=== PATIENT | male | born 1940 | race Caucasian/White ===

== ENCOUNTER → 2017-10-17 | Outpatient (CLI) | payer MEDICARE, BC ==
[2015-07-14 09:55] VITALS: BP 131/70
[~2017-10-17] MED LIST: ALBU6.7H IH; BUDE10.22 IH; CHOL2000 PO; COLE1TAB PO; CYAN10002 IJ; DOXY100T PO; FURO-68 PO; MAGN71.5 PO; METO25TA4 PO; POTA10CA PO; SIMV10TA PO; ZOLP10TA PO; glyburide; singulair
[2017-10-17 11:49] LABS: HEMATOCRIT 42.9 % (39.0-53.0); HEMOGLOBIN 14.6 g/dL (13.0-17.5)
[2017-10-17 12:05] LABS: ALBUMIN 3.6 g/dL (3.4-5.0); BACTERIA,URINE FEW /HPF (0-FEW); BILIRUBIN,URINE NEG (NEG); CALCIUM 8.7 mg/dL (8.5-10.1); CLARITY,URINE CLEAR; COLOR,URINE STRAW; CREATININE 1.7 mg/dL (0.7-1.3); GFR 39.3; GLUCOSE,URINE NEG (NEG); MAGNESIUM 1.9 mg/dL (1.8-2.4); NITRITE,URINE NEG (NEG); PHOSPHORUS 2.6 mg/dL (2.6-4.7); RBC,URINE OCC /HPF (0-2); SQUAMOUS EPITHELIAL CELL,UR FEW /LPF; UROBILINOGEN,URINE 0.2 mg/dL (0.2 mg/dL); WBC,URINE OCC /HPF (0-4)
[2017-10-17 21:07] LABS: MICRO CREAT RATIO 125.8 mg/g creat (0.0-30.0); MICROALB RD UR 49.3 ug/mL (Not Estab.); PROTEIN RANDOM URINE 13.5 mg/dL (Not Estab.)
== END | disposition home or self-care (01) ==
LOC: LAB 11:09
PROVIDERS: ATTEND Internal Medicine Nephrology
DX: I12.9 Hypertensive chronic kidney disease with stage 1 through stage 4 chronic kidney disease, or unspecified chronic kidney disease (principal); N18.3 Chronic kidney disease, stage 3 (moderate); E11.22 Type 2 diabetes mellitus with diabetic chronic kidney disease; E86.0 Dehydration; G47.62 Sleep related leg cramps; R80.1 Persistent proteinuria, unspecified; Z68.29 Body mass index [BMI] 29.0-29.9, adult
CPT/HCPCS: 36415; 80069; 81001; 82043; 82570; 83735; 84156; 85014; 85018

== ENCOUNTER → 2017-11-30 | Outpatient (CLI) | payer MEDICARE, BC ==
[2015-07-14 09:55] VITALS: BP 131/70
[2017-11-30 10:24] LABS: BASO % 0 % (0-3); EOS # 0.1 x10^3/uL (0.0-0.7); EOS % 2 % (0-3); HEMATOCRIT 43.8 % (39.0-53.0); HEMOGLOBIN 14.7 g/dL (13.0-17.5); LYMPH # 1.4 x10^3/uL (1.0-4.8); LYMPH % 24 % (24-48); MEAN CORPUSCULAR HEMOGLOBIN 34 pg (25-35); MEAN CORPUSCULAR HGB CONC 34 g/dL (31-37); MEAN CORPUSCULAR VOLUME 101 fL (79-100); MONO # 0.5 x10^3/uL (0.0-1.1); MONO % 9 % (0-9); NEUT # 3.6 x10^3uL (1.8-7.7); NEUT % 64 % (31-73); PLATELET COUNT 113 x10^3/uL (140-400); RED BLOOD COUNT 4.35 x10^6/uL (4.30-5.70); RED CELL DISTRIBUTION WIDTH 13.4 % (11.5-14.5); WHITE BLOOD COUNT 5.6 x10^3/uL (4.0-11.0)
[2017-11-30 10:34] LABS: BACTERIA,URINE 0 /HPF (0-FEW); BILIRUBIN,URINE NEG (NEG); CLARITY,URINE CLEAR; COLOR,URINE YELLOW; GLUCOSE,URINE NEG (NEG); HYALINE CASTS, URINE OCC /HPF; NITRITE,URINE NEG (NEG); RBC,URINE 0 /HPF (0-2); SQUAMOUS EPITHELIAL CELL,UR OCC /LPF; UROBILINOGEN,URINE 0.2 mg/dL (0.2 mg/dL); WBC,URINE 0 /HPF (0-4)
[2017-11-30 10:38] LABS: ALBUMIN 3.5 g/dL (3.4-5.0); ALBUMIN/GLOBULIN RATIO 0.9 (1.0-1.7); CALCIUM 8.8 mg/dL (8.5-10.1); CREATININE 1.5 mg/dL (0.7-1.3); GFR 45.3; POTASSIUM 4.1 mmol/L (3.5-5.1); TOTAL BILIRUBIN 0.5 mg/dL (0.2-1.0); TOTAL PROTEIN 7.5 g/dL (6.4-8.2)
[2017-11-30 14:36] LABS: FREE T4 0.99 ng/dL (0.76-1.46); THYROID STIM HORMONE (TSH) 5.919 uIU/mL (0.358-3.740)
[2017-12-01 02:08] LABS: HEMOGLOBIN A1C 6.5 % (4.8-5.6)
== END | disposition home or self-care (01) ==
LOC: LAB 08:33
PROVIDERS: ATTEND General Practice
DX: Z12.5 Encounter for screening for malignant neoplasm of prostate (principal); E11.9 Type 2 diabetes mellitus without complications
CPT/HCPCS: 36415; 80053; 80061; 81001; 83036; 83880; 84439; 84443; 85025; 86140; G0103

== ENCOUNTER → 2018-01-24 | Outpatient (CLI) | payer MEDICARE, BC ==
[2015-07-14 09:55] VITALS: BP 131/70
[2018-01-24 21:12] LABS: THYROXINE 8.6 ug/dL (4.5-12.0)
== END | disposition home or self-care (01) ==
LOC: LAB 08:15
PROVIDERS: ATTEND General Practice
DX: E03.9 Hypothyroidism, unspecified (principal); I13.0 Hypertensive heart and chronic kidney disease with heart failure and stage 1 through stage 4 chronic kidney disease, or unspecified chronic kidney disease; E11.22 Type 2 diabetes mellitus with diabetic chronic kidney disease; I50.9 Heart failure, unspecified; N18.3 Chronic kidney disease, stage 3 (moderate); E78.00 Pure hypercholesterolemia, unspecified
CPT/HCPCS: 36415; 84436; 84443; 84480

== ENCOUNTER → 2018-05-30 | Outpatient (CLI) | payer MEDICARE, BC ==
[2015-07-14 09:55] VITALS: BP 131/70
[2018-05-30 10:02] LABS: HEMATOCRIT 44.1 % (39.0-53.0); HEMOGLOBIN 15.1 g/dL (13.0-17.5)
[2018-05-30 10:13] LABS: ALBUMIN 3.5 g/dL (3.4-5.0); BACTERIA,URINE FEW /HPF (0-FEW); BILIRUBIN,URINE NEG (NEG); CLARITY,URINE CLEAR; COLOR,URINE YELLOW; CREATININE 1.8 mg/dL (0.7-1.3); GFR 36.7; GLUCOSE,URINE NEG (NEG); HYALINE CASTS, URINE MOD /HPF; MAGNESIUM 1.9 mg/dL (1.8-2.4); NITRITE,URINE NEG (NEG); PHOSPHORUS 3.1 mg/dL (2.6-4.7); POTASSIUM 4.6 mmol/L (3.5-5.1); SQUAMOUS EPITHELIAL CELL,UR FEW /LPF; UROBILINOGEN,URINE 0.2 mg/dL (0.2 mg/dL)
[2018-05-30 10:14] LABS: GRANULAR CASTS,URINE OCC /HPF
[2018-05-30 20:11] LABS: MICRO CREAT RATIO 91.2 mg/g creat (0.0-30.0)
[2018-05-30 22:06] LABS: CALCIUM PTH 9.8 mg/dL (8.6-10.2); CREATININE PTH 1.57 mg/dL (0.76-1.27); PTH INTACT 31 pg/mL (15-65)
== END | disposition home or self-care (01) ==
LOC: LAB 09:08
PROVIDERS: ATTEND Internal Medicine Nephrology
DX: E11.22 Type 2 diabetes mellitus with diabetic chronic kidney disease (principal); I13.0 Hypertensive heart and chronic kidney disease with heart failure and stage 1 through stage 4 chronic kidney disease, or unspecified chronic kidney disease; I50.30 Unspecified diastolic (congestive) heart failure; N18.3 Chronic kidney disease, stage 3 (moderate); R80.1 Persistent proteinuria, unspecified; E83.39 Other disorders of phosphorus metabolism; Z68.28 Body mass index [BMI] 28.0-28.9, adult
CPT/HCPCS: 80069; 81001; 82043; 82570; 83735; 83970; 85014; 85018

== ENCOUNTER 2018-06-22 18:48 | Emergency (ER) | payer MEDICARE, BC ==
[~2018-06-22] VITALS: Ht 322.6 cm; Wt 72.6 kg
--- NOTE | 2018-06-22 19:01 | ED.ADGEN ---
Past History Past Medical History: Cancer, COPD, Diabetes, Hypertension, Renal Disease Past Surgical History: Appendectomy, Cholecystectomy, Pacemaker Alcohol Use: None Drug Use: None Adult General Chief Complaint Chief Complaint ..." .. I started getting sick about 3 days ago.. it started with diarrhea.. but now I ve been vomiting... and can't keep anything down.. I figured .. I had better get checked out.. .I had mt colon out before.. so I always have some diarrhea.. but this vomiting is getting old.. I did have eye surgery the other day .. but nothing else has changed..." HPI HPI Patient is a 77 year old male who presents with above hx and complaints of diarrhea, nausea and vomiting. Patient has been passing increase gas. Pt. reports generalized abdomen discomfort. Pt. also complaining of generalized headache from the vomiting. Patient has significant medical history of diabetes , COPD, TIAs, hypertension, coronary artery disease, bilateral carotid endarterectomies and history of colectomy. Patient denies any travel or specific ill contacts. Patient denies any intake bad food. Patient reports he is taking Coumadin for TIAs and his heart. Patient normally follows with Dr. Liu at for cardiology. Patient follows Dr. Reyna for primary care. Patient recently off Coumadin for eye surgery but has restarted Coumadin at 4 mg a day. Review of Systems Review of Systems Constitutional: Subjective history of fever. Eyes: Denies change in visual acuity, redness, or eye pain [] HENT: Denies nasal congestion or sore throat [] Respiratory: Denies cough or shortness of breath [] Cardiovascular: No additional information not addressed in HPI [] GI: Complaints of generalized abdominal pain, nausea, vomiting, and diarrhea [] : Denies dysuria or hematuria [] Musculoskeletal: Denies back pain or joint pain [] Complaints of generalized weakness. Integument: Denies rash or skin lesions [] Neurologic: Complaints headache, denies focal weakness or sensory changes [] Endocrine: Denies polyuria or polydipsia [] All other systems were reviewed and found to be within normal limits, except as documented in this note. Family History Family History Noncontributory Current Medications Current Medications Current Medications Medications (Trade) Dose Ordered Sig/Arianne Start Time Stop Time Status Last Admin Dose Admin Info (Do NOT chart on this entry -- for MONITORING) 1 each PRN DAILY PRN 06/22/18 23:00 06/23/18 04:29 DC Iohexol (Omnipaque 240 Mg/ml) 50 ml 1X ONCE 06/22/18 23:00 06/22/18 23:01 DC 06/22/18 23:50 50 ML Lactated Ringer's 1,000 ml @ 500 mls/hr 1X ONCE 06/22/18 23:00 06/23/18 00:59 DC 06/23/18 00:23 500 MLS/HR Lorazepam (Ativan) 2 mg 1X ONCE 06/23/18 01:45 06/23/18 03:19 DC Metronidazole 100 ml @ 100 mls/hr 1X ONCE 06/22/18 23:00 06/22/18 23:59 DC 06/22/18 23:03 100 MLS/HR Morphine Sulfate (Morphine 2mg Syringe) 2 mg 1X ONCE 06/23/18 02:00 06/23/18 03:19 DC 06/23/18 01:51 2 MG Ondansetron HCl (Zofran) 4 mg STK-MED ONCE 06/23/18 02:13 06/23/18 02:14 DC Sodium Chloride 250 ml @ As Directed STK-MED ONCE 06/22/18 22:54 06/22/18 22:55 DC Vancomycin HCl (Vancomycin) 1 gm STK-MED ONCE 06/22/18 22:54 06/22/18 22:55 DC Vancomycin HCl 1 gm/Sodium Chloride 250 ml @ 250 mls/hr 1X ONCE 06/22/18 23:00 06/22/18 23:59 DC 06/23/18 00:24 250 MLS/HR Allergies Allergies Allergies Coded Allergies Type Severity Reaction Last Updated Verified No Known Drug Allergies 07/14/15 No Physical Exam Physical Exam Constitutional: Moderately acute distress, non-toxic appearance. [] HENT: Normocephalic, atraumatic, bilateral external ears normal, oropharynx dry , no oral exudates, nose normal. [] Eyes: PERRLA, EOMI, conjunctiva normal, no discharge. [] Neck: Normal range of motion, no tenderness, supple, no stridor. Old surgery scars. Cardiovascular:Heart rate regular rhythm, no murmur, PMI to the left Lungs & Thorax: Bilateral breath sounds equal at apex with scattered wheezes on auscultation . Pacer on lt. Abdomen: Bowel sounds decreased, soft, generalized tenderness, distended, tympanic, no masses, no pulsatile masses. Old surgery scars. Skin: Warm, dry, no erythema, no rash. Poor turgor. Scattered petechiae and areas of ecchymosis Back: No tenderness, no CVA tenderness. [] Extremities: No tenderness, no cyanosis, no clubbing, ROM intact, no edema. [] Arthritic changes. Neurologic: Alert and oriented X 3, moves all extremities on request. No acute sensory changes per patient,no focal deficits noted. [] Psychologic: Affect anxious,, judgement normal, mood normal. [] Current Patient Data Vital Signs Vital Signs Date Time Temp Pulse Resp B/P (MAP) Pulse Ox O2 Delivery O2 Flow Rate FiO2 06/23/18 01:53 73 18 115/58 (77) 92 Room Air 06/22/18 20:08 97.8 Lab Results Laboratory Tests Test 06/22/18 19:19 06/22/18 20:46 06/22/18 22:09 White Blood Count 5.6 x10^3/uL (4.0-11.0) Red Blood Count 4.81 x10^6/uL (4.30-5.70) Hemoglobin 16.3 g/dL (13.0-17.5) Hematocrit 48.2 % (39.0-53.0) Mean Corpuscular Volume 100 fL (79-100) Mean Corpuscular Hemoglobin 34 pg (25-35) Mean Corpuscular Hemoglobin Concent 34 g/dL (31-37) Red Cell Distribution Width 14.4 % (11.5-14.5) Platelet Count 168 x10^3/uL (140-400) Neutrophils (%) (Auto) 61 % (31-73) Lymphocytes (%) (Auto) 27 % (24-48) Monocytes (%) (Auto) 12 % (0-9) H Eosinophils (%) (Auto) 0 % (0-3) Basophils (%) (Auto) 0 % (0-3) Neutrophils # (Auto) 3.4 x10^3uL (1.8-7.7) Lymphocytes # (Auto) 1.5 x10^3/uL (1.0-4.8) Monocytes # (Auto) 0.7 x10^3/uL (0.0-1.1) Eosinophils # (Auto) 0.0 x10^3/uL (0.0-0.7) Basophils # (Auto) 0.0 x10^3/uL (0.0-0.2) Prothrombin Time 54.4 SEC (9.4-11.4) H Prothrombin Time INR 5.9 (0.9-1.1) *H PTT 74 SEC (23-33) H D-Dimer (Jaqueline) 1.34 mg/L (0.00-0.50) H Sodium Level 129 mmol/L (136-145) L Potassium Level 4.5 mmol/L (3.5-5.1) Chloride Level 94 mmol/L (98-107) L Carbon Dioxide Level 20 mmol/L (21-32) L Anion Gap 15 (6-14) H Blood Urea Nitrogen 71 mg/dL (8-26) H Creatinine 3.4 mg/dL (0.7-1.3) H Estimated GFR (Cockcroft-Gault) 17.6 Glucose Level 259 mg/dL (70-99) H Calcium Level 9.1 mg/dL (8.5-10.1) Magnesium Level 3.2 mg/dL (1.8-2.4) H Total Bilirubin 0.8 mg/dL (0.2-1.0) Direct Bilirubin 0.2 mg/dL (0.0-0.2) Aspartate Amino Transferase (AST) 35 U/L (15-37) Alanine Aminotransferase (ALT) 33 U/L (16-63) Alkaline Phosphatase 78 U/L (46-116) Creatine Kinase 61 U/L (39-308) Troponin I Quantitative 0.019 ng/mL (0-0.055) AO-Lsl-J-Type Natriuretic Peptide 356 pg/mL (0-449) Total Protein 8.5 g/dL (6.4-8.2) H Albumin 3.5 g/dL (3.4-5.0) Lipase 149 U/L (73-393) Urine Collection Type Void Urine Color Stefanie Urine Clarity Hazy Urine pH 5.0 Urine Specific [place] >=1.030 Urine Protein 30 mg/dl (NEG-TRACE) Urine Glucose (UA) Neg mg/dL (NEG) Urine Ketones (Stick) Trace mg/dL (NEG) Urine Blood Neg (NEG) Urine Nitrite Neg (NEG) Urine Bilirubin Neg (NEG) Urine Urobilinogen Dipstick 0.2 mg/dL (0.2 mg/dL) Urine Leukocyte Esterase Neg (NEG) Urine RBC Occ /HPF (0-2) Urine WBC Occ /HPF (0-4) Urine Squamous Epithelial Cells Few /LPF Urine Amorphous Sediment Present /HPF Urine Bacteria Few /HPF (0-FEW) Urine Hyaline Casts Mod /HPF Urine Granular Casts Mod /HPF Urine Opiates Screen Neg (NEG) Urine Methadone Screen Neg (NEG) Urine Barbiturates Neg (NEG) Urine Phencyclidine Screen Neg (NEG) Urine Amphetamine/Methamphetamine Neg (NEG) Urine Benzodiazepines Screen Neg (NEG) Urine Cocaine Screen Neg (NEG) Urine Cannabinoids Screen Neg (NEG) Urine Ethyl Alcohol Neg (NEG) Influenza Type A (Rapid) Negative (NEGATIVE) Influenza Type B (Rapid) Negative (NEGATIVE) EKG EKG My interpretation EKG shows a sinus rhythm at 70 bpm. Does have some nonspecific contour abnormalities. But no findings acute STEMI of contralateral changes[] Radiology/Procedures Radiology/Procedures My interpretation of chest x-ray shows cardiomegaly. Some increase cephalization and blunting a left closed phrenic angle. Does have a pacer. No free air in the diaphragm but obvious diffuse bowel gas.[] CT of abdomen shows distal small bowel obstruction, with pneumatosis and pneumobilia. Course & Med Decision Making Course & Med Decision Making Pertinent Labs and Imaging studies reviewed. (See chart for details). Discussed presentation, testing and treatment plan with Dr. Garcia and Dr. Munguia. -Transfer to [facility]. Critical care 90 min. Pt. to also have cardiology and nephrology consults. [] Final Impression Final Impression 1. Abdomen Pain 2. Nausea , Vomiting, Diarrhea 3. Hx. Fever and Chills[] 4. Weakness 5. Critical INR 5.9 6. Dehydration 7. Distal Small Bowel Obstruction- with Pneumatosis and Pneumobilia 8. Renal Failure Acute on Chronic Bun 71/3.4 creat. 9. Hyponatremia 129 10Hypermagnesium 3.2 11.DM- 252 Dragon Disclaimer Dragon Disclaimer This electronic medical record was generated, in whole or in part, using a voice recognition dictation system. HOMER MCGINNIS MD Jun 22, 2018 19:01
[2018-06-22] MEDS ORDERED: IV RINGERS SOLUTION,LACTATED 1,000 ML IV SCH (19:02)
[2018-06-22] MEDS ORDERED: ONDANSETRON PF 4 MG/2 ML VIAL. IV ONE (19:30)
[2018-06-22 19:40] LABS: BASO % 0 % (0-3); EOS % 0 % (0-3); HEMATOCRIT 48.2 % (39.0-53.0); HEMOGLOBIN 16.3 g/dL (13.0-17.5); LYMPH # 1.5 x10^3/uL (1.0-4.8); LYMPH % 27 % (24-48); MEAN CORPUSCULAR HEMOGLOBIN 34 pg (25-35); MEAN CORPUSCULAR HGB CONC 34 g/dL (31-37); MEAN CORPUSCULAR VOLUME 100 fL (79-100); MONO # 0.7 x10^3/uL (0.0-1.1); MONO % 12 % (0-9); NEUT # 3.4 x10^3uL (1.8-7.7); NEUT % 61 % (31-73); PLATELET COUNT 168 x10^3/uL (140-400); RED BLOOD COUNT 4.81 x10^6/uL (4.30-5.70); RED CELL DISTRIBUTION WIDTH 14.4 % (11.5-14.5); WHITE BLOOD COUNT 5.6 x10^3/uL (4.0-11.0)
[2018-06-22 19:59] LABS: ALBUMIN 3.5 g/dL (3.4-5.0); CALCIUM 9.1 mg/dL (8.5-10.1); CREATININE 3.4 mg/dL (0.7-1.3); DIRECT BILIRUBIN 0.2 mg/dL (0.0-0.2); GFR 17.6; MAGNESIUM 3.2 mg/dL (1.8-2.4); POTASSIUM 4.5 mmol/L (3.5-5.1); TOTAL BILIRUBIN 0.8 mg/dL (0.2-1.0); TOTAL PROTEIN 8.5 g/dL (6.4-8.2)
--- NOTE | 2018-06-22 20:17 | RAD ---
Abdominal series dated 06/22/2018. Comparison made to 05/31/2015. Clinical indication: Nausea and vomiting for 3 days. FINDINGS: Single upright view of the chest shows stable heart and mediastinal contours. Dual lead left subclavian pacer in place, unchanged. There is some patchy increased density at the left lung base with blunting of the left costophrenic sulcus, new from prior study. Right lung remains clear. There are prominent perihilar linear markings, unchanged. No pneumothorax. Flat and upright views of the abdomen show mildly dilated loops of small bowel with a few scattered air-fluid levels on the upright view. No pneumoperitoneum. There is scattered colonic gas. IMPRESSION: 1. Mildly dilated loops of small bowel with a few scattered air-fluid levels, nonspecific. This could be related to ileus or enteritis. Small bowel obstruction not excluded. 2. Patchy left basilar airspace disease, atelectasis versus pneumonia. There is a suspected small left pleural effusion. Electronically signed by: Jet Barrera MD (06/22/2018 8:14 PM) [facility]
[2018-06-22 21:12] LABS: BARBITURATES NEG (NEG); BENZODIAZEPINES NEG (NEG); CANNABINOIDS NEG (NEG); COCAINE NEG (NEG); METHADONE NEG (NEG); OPIATES NEG (NEG); PHENCYCLIDINE NEG (NEG)
[2018-06-22 21:14] LABS: AMPHETAMINE/METHAMPHETAMINE NEG (NEG)
[2018-06-22 21:40] LABS: AMORPHOUS SEDIMENT,UR PRESENT /HPF; BACTERIA,URINE FEW /HPF (0-FEW); BILIRUBIN,URINE NEG (NEG); CLARITY,URINE HAZY; COLOR,URINE AMBER; GLUCOSE,URINE NEG (NEG); GRANULAR CASTS,URINE MOD /HPF; HYALINE CASTS, URINE MOD /HPF; NITRITE,URINE NEG (NEG); RBC,URINE OCC /HPF (0-2); SQUAMOUS EPITHELIAL CELL,UR FEW /LPF; UROBILINOGEN,URINE 0.2 mg/dL (0.2 mg/dL); WBC,URINE OCC /HPF (0-4)
--- NOTE | 2018-06-22 22:11 | RAD ---
CT HEAD WO CONTRAST dated 06/22/2018 9:57 PM Indication:..BILATERAL EYES LIP ALSO PRE-ORBITAL BRUSING AND SWELLING SX S/P NAUSEA AND VOMITING X3 DAYS ALSO VOMITING ELEVATED D DIMER. Comparison: No comparison is available. Technique: Contiguous axial imaging of the head was performed from skull base to vertex. One or more of the following individualized dose reduction techniques were utilized for this examination: 1. Automated exposure control 2. Adjustment of the mA and/or kV according to patient size 3. Use of iterative reconstruction technique Findings: Ventricles and sulci are mildly prominent for age. No midline shift or mass effect. Mild patchy low density in the deep/subcortical periventricular white matter. No hemorrhage or extra axial collection. Posterior fossa and brainstem unremarkable. Visualized paranasal sinuses and mastoid air cells are clear. No apparent calvarial abnormality. IMPRESSION: 1. No evidence of acute intracranial hemorrhage or mass. 2. Mild chronic small vessel ischemic changes and atrophy. Electronically signed by: Jet Barrera MD (06/22/2018 10:08 PM) [facility]
[2018-06-22 22:41] LABS: INFLUENZA A PATIENT NEGATIVE (NEGATIVE); INFLUENZA B PATIENT NEGATIVE (NEGATIVE)
--- NOTE | 2018-06-22 22:41 | EKG ---
[address] [address] Test Date: 2018-06-22 Test Time: 19:35:16 Pat Name: CHRISTOPHER BROWN Department: Room: Gender: M [employer]: : 1940 Requested By: HOMER MCGINNIS Order Number: [id number] Reading MD: Dimas Hernandez Measurements Intervals [place] Rate: 70 P: 16 VA: 178 QRS: 30 QRSD: 86 T: 43 QT: 396 QTc: 430 Interpretive Statements SINUS RHYTHM QRS(T) CONTOUR ABNORMALITY CONSISTENT WITH INFERIOR INFARCT PROBABLY OLD T ABNORMALITY IN ANTERIOR LEADS ABNORMAL ECG Electronically Signed On 06-23-2018 14:31:34 [employer] by Dimas Hernandez
[2018-06-22] MEDS ORDERED: VANCOMYCIN 1 GM VIAL. ONE (22:54)
[2018-06-22] MEDS ORDERED: IV NORMAL SALINE 250ML 250 ML ONE (22:54)
[2018-06-22] MEDS ORDERED: CONTRAST GIVEN MC PRN (23:00)
[2018-06-22] MEDS ORDERED: VANCOMYCIN 1 GM in IV NORMAL SALINE 250ML 250 ML IV ONE (23:00)
[2018-06-22] MEDS ORDERED: IV RINGERS SOLUTION,LACTATED 1,000 ML IV ONE (23:00)
[2018-06-22] MEDS ORDERED: IOHEXOL 240 MG/ML 50ML VIAL. PO ONE (23:00)
--- NOTE | 2018-06-23 00:37 | RAD ---
INDICATION: pain, nausea and vomiting COMPARISON: June 22, 2018 TECHNIQUE: Axial CT images obtained through the abdomen and pelvis without intravenous contrast. One or more of the following individualized dose reduction techniques were utilized for this examination: 1. Automated exposure control; 2. Adjustment of the mA and/or kV according to patient size; 3. Use of iterative reconstruction technique. FINDINGS: Multiple blebs at lung bases with disorganized pulmonary markings. Pacemaker lead partially seen. At least moderate calcific atherosclerosis. Left fat-containing inguinal hernia. There are some mild linear flecks of air within the liver. Postcholecystectomy changes. No peripancreatic fluid collection. Spleen is not enlarged. Suspected exophytic cystic lesion lower pole left kidney. Atrophic appearance of kidneys. No left-sided hydronephrosis. Urinary bladder is partially distended. No right-sided hydronephrosis. No right-sided hydronephrosis. Colonic diverticulosis. Dilation is identified throughout the small bowel loops with some of the bowel loops measuring up to about 4 cm in diameter. Within the right side of abdomen there are some of these bowel loops that have air along the wall of small bowel. Degenerative changes throughout the spine with multilevel central canal and neural foraminal stenosis. IMPRESSION: 1. Air-filled dilation of small bowel loops concerning for small bowel obstruction. 2. Within the right side of the abdomen there is some air seen along the wall of the small bowel which is concerning for pneumatosis. In addition there is a couple of flecks of air within the liver. Given the patient's suspected bowel obstruction and pneumatosis this is concerning for portal venous air which is the most likely cause with pneumobilia considered less likely. 3. There is some nodularity of the hepatic contour. Cannot exclude causes such as chronic hepatic disease. 4. Calcific atherosclerosis. 5. Report called to the ER at 12:30 AM on date of exam. Electronically signed by: Cam Davis MD (06/23/2018 12:33 AM) [id number]
[2018-06-23] MEDS ORDERED: LORazepam 1 MG TABLET PO ONE (01:45)
[2018-06-23] MEDS ORDERED: MORPHINE SULFATE 2 MG/ML DISP.SYRIN. ONE (01:47)
[2018-06-23 01:53] VITALS: BP 115/58
[2018-06-23] MEDS ORDERED: MORPHINE SULFATE 2 MG/ML DISP.SYRIN. IV ONE (02:00)
[2018-06-23] MEDS ORDERED: ONDANSETRON PF 4 MG/2 ML VIAL. IV ONE ×2 (02:02→09:00)
[2018-06-23] MEDS ORDERED: ONDANSETRON PF 4 MG/2 ML VIAL. ONE (02:13)
== END 2018-06-23 02:18 | disposition short-term general hospital (02) ==
LOC: ER 18:48
DX: K56.699 Other intestinal obstruction unspecified as to partial versus complete obstruction (principal); R11.2 Nausea with vomiting, unspecified; R19.7 Diarrhea, unspecified; R53.1 Weakness; K63.89 Other specified diseases of intestine; N17.9 Acute kidney failure, unspecified; E87.1 Hypo-osmolality and hyponatremia; E83.41 Hypermagnesemia; E11.22 Type 2 diabetes mellitus with diabetic chronic kidney disease; I12.9 Hypertensive chronic kidney disease with stage 1 through stage 4 chronic kidney disease, or unspecified chronic kidney disease; N18.9 Chronic kidney disease, unspecified; J44.9 Chronic obstructive pulmonary disease, unspecified; Z90.49 Acquired absence of other specified parts of digestive tract; Z90.89 Acquired absence of other organs; Z95.0 Presence of cardiac pacemaker
CPT/HCPCS: 36415; 70450; 74022; 74176; 80048; 80076; 80307; 81001; 82550; 83690; 83735; 83880; 84443; 84484; 85025; 85379; 85610; 85730; 87040; 87804; 93005; 96361; 96365; 96367; 96375; 96376; 99285; J2270; J2405; J3370; J3490; J7050; J7120; Q9966

== ENCOUNTER → 2019-01-03 | Outpatient (CLI) | payer MEDICARE, BC ==
[~2019-01-03] MED LIST changes: +ALBU2.5V8 IH; -ALBU6.7H IH
--- NOTE | 2019-01-03 13:31 | RAD ---
PA and lateral chest x-ray compared to similar study dated 05/31/2015 for cough with shortness of breath. FINDINGS: There are coarse fibrotic interstitial changes bilaterally. Heart size mildly enlarged. Dual-lead pacemaker is present. Diaphragms are flattened. No definite focal pneumonic infiltrates, though subtle disease could be masked by fibrotic interstitial changes. IMPRESSION: 1. Changes of COPD, with diffuse coarse fibrotic interstitial lung disease. No definite acute infiltrates. Electronically signed by: Mik Wagner MD (01/03/2019 1:28 PM) [id number]
== END | disposition home or self-care (01) ==
LOC: RAD 13:09
PROVIDERS: ATTEND General Practice
DX: J44.9 Chronic obstructive pulmonary disease, unspecified (principal); J84.10 Pulmonary fibrosis, unspecified; Z95.0 Presence of cardiac pacemaker
CPT/HCPCS: 71046

== ENCOUNTER → 2019-07-18 | Outpatient (CLI) | payer MEDICARE, BC ==
[2019-07-18 09:34] LABS: BASO % 1 % (0-3); EOS # 0.2 x10^3/uL (0.0-0.7); EOS % 3 % (0-3); HEMATOCRIT 41.1 % (39.0-53.0); HEMOGLOBIN 13.8 g/dL (13.0-17.5); LYMPH # 1.5 x10^3/uL (1.0-4.8); LYMPH % 19 % (24-48); MEAN CORPUSCULAR HEMOGLOBIN 35 pg (25-35); MEAN CORPUSCULAR HGB CONC 34 g/dL (31-37); MEAN CORPUSCULAR VOLUME 103 fL (79-100); MONO # 0.8 x10^3/uL (0.0-1.1); MONO % 10 % (0-9); NEUT # 5.2 x10^3uL (1.8-7.7); NEUT % 67 % (31-73); PLATELET COUNT 160 x10^3/uL (140-400); RED BLOOD COUNT 3.98 x10^6/uL (4.30-5.70); RED CELL DISTRIBUTION WIDTH 14.4 % (11.5-14.5); WHITE BLOOD COUNT 7.7 x10^3/uL (4.0-11.0)
[2019-07-18 09:43] LABS: ALBUMIN 3.5 g/dL (3.4-5.0); ALBUMIN/GLOBULIN RATIO 0.8 (1.0-1.7); CALCIUM 8.8 mg/dL (8.5-10.1); CREATININE 2.2 mg/dL (0.7-1.3); POTASSIUM 4.2 mmol/L (3.5-5.1); TOTAL BILIRUBIN 0.6 mg/dL (0.2-1.0)
== END | disposition home or self-care (01) ==
LOC: LAB 08:19
PROVIDERS: ATTEND Internal Medicine Cardiovascular Disease
DX: I25.10 Atherosclerotic heart disease of native coronary artery without angina pectoris (principal); E78.5 Hyperlipidemia, unspecified; I48.0 Paroxysmal atrial fibrillation
CPT/HCPCS: 36415; 80053; 80061; 85025

== ENCOUNTER → 2019-09-24 | Outpatient (CLI) | payer MEDICARE, BC ==
[2019-09-24 11:59] LABS: HEMATOCRIT 42.6 % (39.0-53.0)
[2019-09-24 12:10] LABS: ALBUMIN 3.6 g/dL (3.4-5.0); CALCIUM 8.8 mg/dL (8.5-10.1); CREATININE 2.6 mg/dL (0.7-1.3); GFR 23.9; PHOSPHORUS 3.2 mg/dL (2.6-4.7); POTASSIUM 4.7 mmol/L (3.5-5.1)
--- NOTE | 2019-09-24 12:38 | RAD ---
EXAM: Renal sonogram. HISTORY: Renal insufficiency. TECHNIQUE: Sonographic imaging of the kidneys and bladder was performed. COMPARISON: None. FINDINGS: The kidneys are normal in size. There is a 1.2 cm exophytic left renal cyst. No solid renal lesion is seen. There is no hydronephrosis. There is renal cortical thinning and renal cortical lobulation. The prevoid bladder volume is 75 cc. The ureteral jets are both seen. There is atherosclerotic plaque within the slightly ectatic abdominal aorta measuring 2.5 cm within its mid aspect. The inferior vena cava is patent. IMPRESSION: 1. Bilateral renal cortical thinning. 2. Renal cortical lobulation. This may be due to scarring. 3. Small exophytic left renal cyst. Electronically signed by: Dotty Rivera MD (09/24/2019 12:35 PM) [facility]
[2019-09-24 13:32] LABS: BACTERIA,URINE FEW /HPF (0-FEW); BILIRUBIN,URINE NEG (NEG); CLARITY,URINE HAZY; COLOR,URINE YELLOW; GLUCOSE,URINE NEG (NEG); NITRITE,URINE NEG (NEG); UROBILINOGEN,URINE 0.2 mg/dL (0.2 mg/dL)
[2019-09-24 13:33] LABS: GRANULAR CASTS,URINE MANY /HPF; HYALINE CASTS, URINE OCC /HPF; SQUAMOUS EPITHELIAL CELL,UR FEW /LPF
[2019-09-24 15:28] LABS: CREATININE,RANDOM URINE 167.1 mg/dL (Not Establ.)
[2019-09-24 21:06] LABS: MICROALB RD UR 79.2 ug/mL (Not Estab.)
== END | disposition home or self-care (01) ==
LOC: US 10:56
PROVIDERS: ATTEND Internal Medicine Nephrology
DX: N28.1 Cyst of kidney, acquired (principal); I70.0 Atherosclerosis of aorta; I13.0 Hypertensive heart and chronic kidney disease with heart failure and stage 1 through stage 4 chronic kidney disease, or unspecified chronic kidney disease; E11.29 Type 2 diabetes mellitus with other diabetic kidney complication; I70.1 Atherosclerosis of renal artery; I50.30 Unspecified diastolic (congestive) heart failure; N18.3 Chronic kidney disease, stage 3 (moderate); N26.9 Renal sclerosis, unspecified; R80.1 Persistent proteinuria, unspecified; Z68.26 Body mass index [BMI] 26.0-26.9, adult
CPT/HCPCS: 36415; 76770; 80069; 81001; 82043; 82570; 84156; 85014; 85018

== ENCOUNTER → 2019-10-05 | Outpatient (CLI) | payer MEDICARE, BC ==
[2019-10-05 12:39] LABS: ALBUMIN 3.6 g/dL (3.4-5.0); CALCIUM 8.9 mg/dL (8.5-10.1); CREATININE 2.5 mg/dL (0.7-1.3); PHOSPHORUS 3.3 mg/dL (2.6-4.7); POTASSIUM 4.4 mmol/L (3.5-5.1)
== END | disposition home or self-care (01) ==
LOC: LAB 11:50
PROVIDERS: ATTEND Nurse Practitioner Family
DX: N18.3 Chronic kidney disease, stage 3 (moderate) (principal)
CPT/HCPCS: 36415; 80069

== ENCOUNTER → 2019-11-28 | Outpatient (CLI) | payer MEDICARE, BC | END | disposition home or self-care (01) | LOC: LAB 11:18 | PROVIDERS: ATTEND Internal Medicine Cardiovascular Disease | DX: Z79.01 Long term (current) use of anticoagulants (principal) | CPT/HCPCS: 36415; 85610 ==

== ENCOUNTER → 2019-11-28 | Outpatient (CLI) | payer MEDICARE, BC ==
[2019-11-28 11:35] LABS: ALBUMIN 3.6 g/dL (3.4-5.0); CALCIUM 8.9 mg/dL (8.5-10.1); CREATININE 2.9 mg/dL (0.7-1.3); GFR 21.1; PHOSPHORUS 3.4 mg/dL (2.6-4.7); POTASSIUM 4.7 mmol/L (3.5-5.1)
== END | disposition home or self-care (01) ==
LOC: LAB 09:40
PROVIDERS: ATTEND Nurse Practitioner Adult Health
DX: I13.0 Hypertensive heart and chronic kidney disease with heart failure and stage 1 through stage 4 chronic kidney disease, or unspecified chronic kidney disease (principal); E11.22 Type 2 diabetes mellitus with diabetic chronic kidney disease; N18.3 Chronic kidney disease, stage 3 (moderate); I50.30 Unspecified diastolic (congestive) heart failure; E11.29 Type 2 diabetes mellitus with other diabetic kidney complication; I70.1 Atherosclerosis of renal artery; N26.9 Renal sclerosis, unspecified; E87.2 Acidosis; R80.1 Persistent proteinuria, unspecified; Z79.84 Long term (current) use of oral hypoglycemic drugs
CPT/HCPCS: 36415; 80069; 82550; 83874

== ENCOUNTER → 2019-12-21 | Outpatient (CLI) | payer MEDICARE, BC ==
[2019-12-21 16:38] LABS: CALCIUM 9.1 mg/dL (8.5-10.1); CREATININE 2.6 mg/dL (0.7-1.3); GFR 23.9; MAGNESIUM 2.1 mg/dL (1.8-2.4); POTASSIUM 5.2 mmol/L (3.5-5.1)
== END | disposition home or self-care (01) ==
LOC: LAB 15:43
PROVIDERS: ATTEND Internal Medicine Cardiovascular Disease
DX: I25.10 Atherosclerotic heart disease of native coronary artery without angina pectoris (principal); I10 Essential (primary) hypertension; I47.2 Ventricular tachycardia; I48.3 Typical atrial flutter
CPT/HCPCS: 36415; 80048; 83735

== ENCOUNTER → 2020-01-11 | Outpatient (CLI) | payer MEDICARE, BC ==
--- NOTE | 2020-01-11 10:21 | RAD ---
PA and lateral views of the chest. Comparison: 01/03/2019. Indication: Shortness of air Findings: Left subclavian pacemaker is reidentified. The heart size is enlarged but stable. Lungs appear hyperexpanded.. No pneumothorax or effusion. No air space or interstitial disease. The bony structures are intact. Impression: 1. No acute cardiopulmonary process. Findings suggest COPD. Electronically signed by: Chino Be MD (01/11/2020 10:18 AM) [id number]
--- NOTE | 2020-01-11 10:52 | RAD ---
V/Q LUNG SCAN CLINICAL INDICATIONS: Dyspnea on exertion. COMPARISON: No previous lung scan available. Chest x-ray dated January 11, 2020. TECHNIQUE: No ventilation was performed due to Covid 19 protocol. After IV infusion of 5.5 mCi of technetium 99m MAA, multiplanar images of both lung hdz were performed. FINDINGS: Multiple bilateral perfusion defects are seen. Chest x-ray demonstrates bilateral interstitial lung disease. This may account for the abnormal perfusion. However, pulmonary embolism cannot be excluded. IMPRESSION: Abnormal bilateral perfusion which may be related to interstitial lung disease. However, pulmonary embolism cannot be excluded. Therefore, chest CTA may be helpful for further evaluation. Electronically signed by: Amadeo Ríos MD (01/11/2020 10:50 AM) [id number]
== END | disposition home or self-care (01) ==
LOC: NM 09:43
PROVIDERS: ATTEND Internal Medicine Cardiovascular Disease
DX: J84.9 Interstitial pulmonary disease, unspecified (principal); I48.0 Paroxysmal atrial fibrillation
CPT/HCPCS: 71046; 78580; A9540; 96374